=== PATIENT | male | born 1945 | race Caucasian/White ===

== ENCOUNTER 2017-12-28 18:39 | Emergency (ER) | payer OTHER, MEDICAID ==
[~2017-12-28] VITALS: Ht 182.9 cm; Wt 79.4 kg
[2017-12-28] MEDS ORDERED: PROSCAR 5MG TABL5 MG PO (18:49)
[2017-12-28] MEDS ORDERED: COREG6.25 MG PO (18:49)
[2017-12-28] MEDS ORDERED: LIPITOR80 MG PO (18:49)
[2017-12-28] MEDS ORDERED: GLIPIZIDE 10 MG10 MG PO (18:50)
[2017-12-28] MEDS ORDERED: KLOR-CON 1010 MEQ PO (18:50)
[2017-12-28] MEDS ORDERED: FLORASTOR250 MG PO (18:50)
[2017-12-28] MEDS ORDERED: MIRALAX17 GM PO (18:50)
[2017-12-28] MEDS ORDERED: TRAZODONE HCL50 MG PO (18:51)
[2017-12-28] MEDS ORDERED: FLOMAX0.4 MG (18:51)
[2017-12-28] MEDS ORDERED: ROPINIROLE HCL2 M1 PO (18:51)
[2017-12-28] MEDS ORDERED: VITAMIN D31000 UNIT PO (18:53)
[2017-12-28] MEDS ORDERED: XARELTO10 MG PO (18:53)
[2017-12-28] MEDS ORDERED: CEPACOL SORE T1 EAC7 MM (18:53)
[2017-12-28] MEDS ORDERED: TRAMADOL 50 MG50 MG PO (18:54)
[2017-12-28] MEDS ORDERED: MILK OF MA2400 MG/10 (18:54)
[2017-12-28 19:01] LABS: ABSOLUTE BASOPHILS 0.1 thou/uL (0.0-0.2); ABSOLUTE EOSINOPHILS 0.3 thou/uL (0.0-0.7); ABSOLUTE MONOCYTES 0.7 thou/uL (0.0-1.2); ABSOLUTE NEUTROPHILS 4.6 thou/uL (1.6-8.1); BASOPHILS 0.8 %; EOSINOPHILS 3.6 %; HEMATOCRIT 40.2 % (42.0-52.0); HEMOGLOBIN 13.5 gm/dL (14.0-18.0); LYMPHOCYTES 26.3 %; MCH 30.9 pg (26.0-34.0); MCHC 33.6 g/dL (28.0-37.0); MCV 91.9 fL (80.0-100.0); MONOCYTES 8.9 %; MPV 7.6 fl. (7.2-11.1); NUCLEATED RBCS 0 /100WBC; PLATELET COUNT* 184 thou/uL (150-400); POLYS 60.4 %; RBC 4.38 mil/uL (4.50-6.00); RDW-CV 13.4 % (10.5-14.5); WBC 7.6 thou/uL (4.0-11.0)
[2017-12-28 19:08] LABS: CALCIUM 8.1 mg/dL (8.5-10.1); CREATININE 0.8 mg/dL (0.6-1.3); POTASSIUM 3.8 mmol/L (3.5-5.1)
[2017-12-28 19:13] LABS: ALBUMIN 3.3 g/dL (3.4-5.0); TOTAL BILIRUBIN 0.8 mg/dL (<0.1-1.0); TOTAL PROTEIN 6.9 g/dL (6.4-8.2)
[2017-12-28 19:57] LABS: URINE BILIRUBIN NEGATIVE (Negative); URINE BLOOD 3+ (Negative); URINE CLARITY CLOUDY; URINE COLOR RED; URINE GLUCOSE-RANDOM 3+ (Negative); URINE KETONES NEGATIVE (Negative); URINE LEUKOCYTES-REFLEX NEGATIVE (Negative); URINE NITRITE-REFLEX NEGATIVE (Negative); URINE PROTEIN 2+ (Negative); URINE SPECIFIC GRAVITY 1.025 (1.005-1.030)
[2017-12-28 19:59] LABS: URINE RBC >20 Many /HPF (0-2)
[2017-12-28 20:00] LABS: MUCUS None Seen strn/LPF (None Seen); SQUAMOUS NONE SEEN /LPF (0-3); URINE WBC-REFLEX 6-15 Few /HPF (0-5)
[2017-12-28 20:01] LABS: BACTERIA-REFLEX None Seen /HPF (None Seen); CASTS None Seen /LPF (None Seen); CRYSTALS None Seen /LPF (None Seen)
[2017-12-28] MEDS ORDERED: BACTRIM DS TAB1 EACH PO (21:13)
[2017-12-28 22:40] VITALS: BP 122/68
== END 2017-12-28 22:42 | disposition home or self-care (01) ==
LOC: M.ERS 18:39
PROVIDERS: Nurse Practitioner Family
DX: N40.0 Benign prostatic hyperplasia without lower urinary tract symptoms (principal); R31.9 Hematuria, unspecified; E78.00 Pure hypercholesterolemia, unspecified